=== PATIENT | male | born 1970 ===

== ENCOUNTER 2019-02-20 05:43 | Day surgery (SDC) | payer OTHER ==
[~2019-02-20 05:43] MED LIST: COZAAR50 MG
== END 2019-02-20 16:55 | disposition home or self-care (01) ==
LOC: CIR.AMB 05:43
DX: M77.11 Lateral epicondylitis, right elbow (principal); S56.511A Strain of other extensor muscle, fascia and tendon at forearm level, right arm, initial encounter; M65.831 Other synovitis and tenosynovitis, right forearm